=== PATIENT | male | born 1965 | race Caucasian/White ===

== ENCOUNTER → 2018-02-23 | Outpatient (CLI) | payer BC ==
--- NOTE | 2018-02-23 10:05 | XR ---
EXAMINATION TYPE: XR knee complete LT DATE OF EXAM: 02/23/2018 CLINICAL HISTORY: Patellar pain. TECHNIQUE: Three views of the left knee are obtained. COMPARISON: None. FINDINGS: There is no acute fracture/dislocation evident in left knee. The overlying soft tissue bryce ears unremarkable. There is mild medial compartment joint space narrowing. Patellas slightly high rid ing without patella. Chondroid matrix intramedullary density of the distal left femoral metaphysis ma y relate to prior bone infarct or small enchondroma. IMPRESSION: There is no acute fracture or dislocation in the left knee. Mild medial compartment arth rosis. Possible small enchondroma or bone infarct.
== END | disposition home or self-care (01) ==
LOC: RADXRYALE 09:04
PROVIDERS: ATTEND Physician Assistant Medical
DX: M17.12 Unilateral primary osteoarthritis, left knee (principal)

== ENCOUNTER → 2018-11-16 | Outpatient (CLI) | payer BC ==
--- NOTE | 2018-11-16 22:01 | XR ---
EXAMINATION TYPE: XR lumbosacral spine min 4V DATE OF EXAM: 11/16/2018 CLINICAL HISTORY: Chronic low back pain. TECHNIQUE: Frontal, lateral, and oblique images of the lumbar spine are obtained. COMPARISON: Prior lumbar spine x-ray October 30, 2013 FINDINGS: There are 5 lumbar type vertebral bodies redemonstrated. The lumbar spine redemonstrates satisfactory alignment without evidence of acute fracture or dislocation. Vertebral body heights garcia in within normal limits. There is [id number] multilevel disc space narrowing with interval pro gression from prior study. Mild to minimal multilevel anterior spurring is seen. The oblique images a ppear within normal limits. The overlying soft tissue appears unremarkable. IMPRESSION: As above.
== END | disposition home or self-care (01) ==
LOC: RADXRYALE 16:37
PROVIDERS: ATTEND Physician Assistant Medical
DX: M48.061 Spinal stenosis, lumbar region without neurogenic claudication (principal)
CPT/HCPCS: 72110

== ENCOUNTER → 2020-01-31 | Outpatient (CLI) | payer BC ==
--- NOTE | 2020-01-31 09:29 | US ---
EXAMINATION TYPE: US abdomen complete DATE OF EXAM: 01/31/2020 COMPARISON: us CLINICAL HISTORY: R11.2 nausea with vomiting,R10.31 Rt low quad pain. EXAM MEASUREMENTS: Liver Length: 13.0 cm Gallbladder Wall: 0.3 cm CBD: 0.3 cm Spleen: 11.5 cm Right Kidney: 10.7 x 5.0 x 4.3 cm Left Kidney: 10.7 x 5.3 x 5.3 cm Extensive midline bowel gas. Pancreas: Obscured by bowel gas Liver: wnl as seen, somewhat obscured by bowel Gallbladder: wnl Evidence for sonographic Borrego's sign: no CBD: wnl Spleen: wnl Right Kidney: 2mm echogenic focus possible small stone Left Kidney: wnl Upper IVC: wnl Abd Aorta: wnl The liver is homogenous. The intrahepatic portion of the IVC and proximal abdominal aorta are within normal limits. There is no evidence of cholelithiasis. Common bile duct is unremarkable. The splee n is unremarkable. Kidneys are symmetric and free of hydronephrosis. No renal lesions are seen. IMPRESSION: Nonobstructing 2 mm right renal calculus. No sonographic evidence of cholelithiasis or ac [place] cholecystitis. Pancreas is obscured by bowel gas.
== END | disposition home or self-care (01) ==
LOC: RADUSWWP 06:48
PROVIDERS: ATTEND Family Medicine
DX: N20.0 Calculus of kidney (principal); R11.2 Nausea with vomiting, unspecified
CPT/HCPCS: 76700

== ENCOUNTER 2020-02-20 20:57 | Emergency (ER) | payer BC ==
[2020-02-20] MEDS ORDERED: LIDOCAINE 1% INJ 10MG/ML (20 ML MDV) SQ ONE (21:10)
[2020-02-20] MEDS ORDERED: DIPH,PERTUS(ACELL)TETVAC-LF 0.5 ML VIAL IM ONE (21:13)
--- NOTE | 2020-02-20 21:13 | ED ---
Wound/Laceration HPI - General Chief Complaint: Wound/Laceration Stated Complaint: L Thumb Lac Time Seen by Provider: 02/20/20 21:03 Source: patient Mode of arrival: ambulatory Limitations: no limitations - History of Present Illness Initial Comments: Patient is a 54-year-old male presenting to the emergency department with chief complaint of a laceration. States he was using a table saw about one hour prior to arrival when she accidentally lacerated the palmar aspect of the left first digit. Denies any numbness or tingling. States he has full range of motion in the thumb. Denies taking medication to alleviate his symptoms. Not on blood thinners. Unknown tetanus status. - Related Data Home Medications Medication Instructions Recorded Confirmed Fluticasone Nasal [place] [Flonase 1 spray EA NOSTRIL DAILY 05/11/16 05/19/16 Nasal [place]] Hydrocodone/Acetaminophen [[place] 1 tab PO BID PRN 05/11/16 05/11/16 5-325] Ibuprofen [Motrin] 800 mg PO TID 05/11/16 05/11/16 traMADol HCL [Ultram] 50 mg PO TID PRN 05/11/16 05/19/16 Previous Rx's Medication Instructions Recorded Hydrocodone/Acetaminophen [[place] 1 - 2 tab PO Q6HR PRN #90 tab 05/19/16 5-325] Allergies Allergy/AdvReac Type Severity Reaction Status Date / Time No Known Allergies Allergy Verified 02/20/20 21:01 Review of Systems ROS Statement: Those systems with pertinent positive or pertinent negative responses have been documented in the HPI. ROS Other: All systems not noted in ROS Statement are negative. Past Medical History Additional Past Medical History / Comment(s): degenerative disks History of Any Multi-Drug Resistant Organisms: None Reported Past Surgical History: Orthopedic Surgery Additional Past Surgical History / Comment(s): ganglion cyst removed rt wrist, last month- sterid injections in spine Past Anesthesia/Blood Transfusion Reactions: No Reported Reaction Past Psychological History: No Psychological Hx Reported Smoking Status: Current some day smoker Past Alcohol Use History: Occasional Past Drug Use History: None Reported - Past Family History Father Family Medical History: Cancer General Exam Limitations: no limitations General appearance: alert, in no apparent distress Head exam: Present: atraumatic, normocephalic, normal inspection Eye exam: Present: normal appearance, PERRL, EOMI Pupils: Present: normal accommodation ENT exam: Present: normal exam, normal oropharynx, mucous membranes moist, TM's normal bilaterally, normal external ear exam Neck exam: Present: normal inspection, full ROM Respiratory exam: Present: normal lung sounds bilaterally Cardiovascular Exam: Present: regular rate, normal rhythm, normal heart sounds Extremities exam: Present: full ROM, tenderness (Tenderness at the site of injury), normal capillary refill, other (+2 ulnar and radial pulses bilaterally). Absent: normal inspection (3 cm laceration on the palmar aspect of the left thumb.) Back exam: Present: normal inspection, full ROM Neurological exam: Present: alert, oriented X3 Psychiatric exam: Present: normal affect, normal mood Skin exam: Present: warm, dry, intact, normal color Course Vital Signs 02/20/20 20:59 Temperature 97.6 F Pulse Rate 75 Respiratory 20 Rate Blood Pressure 124/86 O2 Sat by Pulse 97 Oximetry Procedures - Laceration Laceration #1 Consent Obtained: verbal consent Indication: laceration Site: hand (Left thumb) Size (cm): 3 Description: irregular Depth: simple, single layer Sedation/Analgesia: none Anesthetic Used: lidocaine 1% Anesthesia Technique: nerve block Amount (mls): 5 Pre-repair: irrigated extensively, deep structures intact, wound margins revised Type of Sutures: nylon Size of Sutures: 4-0 Number of Sutures: 8 Technique: simple, interrupted Patient Tolerated Procedure: well, no complications Medical Decision Making - Medical Decision Making Patient is a 54-year-old male presenting to emergency Department with chief complaint of a laceration. Patient lacerated the palmar aspect of his left thumb using a table saw. 3 cm laceration with no tendon involvement. Neurovascularly intact. Laceration site was thoroughly irrigated. Tetanus administered. Laceration site repaired with a sutures. X-ray shows no foreign bodies. Return parameters thoroughly discussed with patient was understanding and agreeable. Case discussed with physician. Disposition Clinical Impression: Laceration, Injury of finger of left hand Disposition: HOME SELF-CARE Condition: Stable Instructions (If sedation given, give patient instructions): Care For Your Stitches (DC), Laceration (DC) Additional Instructions: Return to emergency department in 7 days for suture removal or sooner if necessary. Follow wound care instructions. Is patient prescribed a controlled substance at d/c from ED?: No Referrals: Royal Guerrero, [Primary Care Provider] - 1-2 days Time of Disposition: 22:02
--- NOTE | 2020-02-20 21:26 | XR ---
EXAMINATION TYPE: XR hand limited LT DATE OF EXAM: 02/20/2020 COMPARISON: 02/11/2016 HISTORY: Thumb pain table saw laceration. TECHNIQUE: 2 views FINDINGS: I see no fracture nor dislocation. Joint spaces are normal. Metacarpals are intact. There a re no erosions. There is no evidence of a foreign body. IMPRESSION: Negative exam. No fracture seen.
[2020-02-20 22:10] VITALS: BP 119/70; PULSE 72; RESP 16; TEMP 98
== END 2020-02-20 22:09 | disposition home or self-care (01) ==
LOC: EC 20:57
DX: S61.012A Laceration without foreign body of left thumb without damage to nail, initial encounter (principal); F17.200 Nicotine dependence, unspecified, uncomplicated; Z79.1 Long term (current) use of non-steroidal anti-inflammatories (NSAID); Z87.39 Personal history of other diseases of the musculoskeletal system and connective tissue; Z23 Encounter for immunization; W27.8XXA Contact with other nonpowered hand tool, initial encounter; Y93.89 Activity, other specified; Y92.009 Unspecified place in unspecified non-institutional (private) residence as the place of occurrence of the external cause
CPT/HCPCS: 73120; 90715; 99283; 12002; 90471; J2001

== ENCOUNTER 2020-05-22 10:11 | Day surgery (SDC) | payer BC ==
[2020-05-20 16:26] VITALS: BMI 25.8
[~2020-05-22 10:11] MED LIST: LACTATED RINGERS 1,000 ML IV SCH; LIDOCAINE 1% (10MG/ML) FOR IV START INTRADERMA PRN
[2020-05-22 10:55] VITALS: TEMP 96.9
[2020-05-22] MEDS ORDERED: LIDOCAINE 1% INJ 10MG/ML (20 ML MDV) ONE (11:21)
[2020-05-22] MEDS ORDERED: PROPOFOL 10 MG/ML 20 ML VIAL IV ONE (11:21)
--- NOTE | 2020-05-22 11:41 | P.PCN ---
Date of Procedure: 05/22/20 Procedure(s) Performed: Brief history: Patient is a pleasant 55-year-old white male scheduled for an elective upper endoscopy as well as colonoscopy as a part of evaluation of GERD and screening for colorectal neoplasia. Procedure performed: Esophagogastroduodenoscopy with biopsy Colonoscopy Preoperative diagnosis: GERD Screening for colon cancer Anesthesia: MAC Procedure: After informed consent was obtained from the patient was brought into the endoscopy unit and IV sedation was administered by anesthesia under continuous monitoring. Initially upper endoscopy was done. The Olympus GF 160 video endoscope was inserted inserted into the mouth and esophagus intubated without any difficulty and was gradually advanced into the stomach and duodenum and carefully examined. The bulb and second part of the duodenum appeared normal. The scope was then withdrawn into the stomach adequately insufflated with air and upon careful examination the antrum had patchy areas of erythema in the antrum which was biopsied. The body, cardia and fundus appeared normal. The scope was then withdrawn into the esophagus. The GE junction was located at 40 cm to the incisors. It appeared regular with no erythema erosions or ulcerations. Rest of the esophagus appeared normal. as his were done from the distal esophagus. Patient tolerated the procedure well. At this time the patient continued to remain sedation. Initial digital rectal examination was normal. Olympus CF 160 video colonoscope was then inserted into the rectum and gradually advanced to the cecum without any difficulty. Careful examination was performed as the scope was gradually being withdrawn. The prep was excellent. The cecum, ascending colon, transverse colon, descending colon, sigmoid colon and rectum appeared normal. Retroflexion was performed in the rectum and no lesions were noted. Patient tolerated the procedure well. Impression: 1. Upper endoscopy revealed mild antral gastritis 2. Colonoscopy was within normal limits. No evidence of colorectal neoplasia Recommendations: Findings of this examination were discussed with the patient as well as[ his family. He was advised to follow with the biopsy results. He can have a repeat screening colonoscopy in 10 years.
[2020-05-22 12:11] VITALS: BP 108/70; PULSE 50; RESP 16
== END 2020-05-22 12:28 | disposition home or self-care (01) ==
LOC: ORWHC2ENDO 10:11
PROVIDERS: ATTEND Internal Medicine Gastroenterology
DX: K21.0 Gastro-esophageal reflux disease with esophagitis (principal); K29.50 Unspecified chronic gastritis without bleeding; Z12.11 Encounter for screening for malignant neoplasm of colon; F17.200 Nicotine dependence, unspecified, uncomplicated; Z79.899 Other long term (current) drug therapy; Z79.1 Long term (current) use of non-steroidal anti-inflammatories (NSAID); Z79.891 Long term (current) use of opiate analgesic
CPT/HCPCS: 88305; 43239; J2001; J2704; G0121

== ENCOUNTER → 2021-08-17 | Outpatient (CLI) | payer BC ==
--- NOTE | 2021-08-17 11:29 | XR ---
EXAMINATION TYPE: XR lumbosacral spine min 4V DATE OF EXAM: 08/17/2021 CLINICAL HISTORY: Chronic low back pain TECHNIQUE: Frontal, lateral, and oblique images of the lumbar spine are obtained. COMPARISON: Lumbar spine x-ray November 16, 2018 FINDINGS: There are 5 lumbar type vertebral bodies identified. The lumbar spine shows stable and sa tisfactory alignment without evidence of acute fracture or dislocation. Vertebral body heights remain within normal limits. Mild multilevel disc space narrowing with mild multilevel anterior and lateral spurring The oblique images appear stable and within normal limits. The overlying soft tissue appe ars unremarkable. IMPRESSION: As above. No significant change from prior.
== END | disposition home or self-care (01) ==
LOC: RADXRYALE 10:54
PROVIDERS: ATTEND Family Medicine
DX: M54.5 Low back pain (principal)
CPT/HCPCS: 72110

== ENCOUNTER → 2021-10-28 | Outpatient (CLI) | payer BC ==
--- NOTE | 2021-10-28 10:14 | CT ---
EXAMINATION TYPE: CT lumbar spine wo con DATE OF EXAM: 10/28/2021 COMPARISON: Plain film 10/19/2021 from outside institution HISTORY: Low back pain CT DLP: 550.4 mGycm Automated exposure control for dose reduction was used. An unenhanced CT of the lumbar spine was performed. Bone and soft tissue window settings are submitt ed as well as coronal and sagittal reconstructions. FINDINGS: There is a spinal curvature as noted on plain film, multilevel spondylosis is present, lumbar vertebr al bodies show preserved height and bone mineralization. Loss of disc height is present at interverte bral levels consistent with disc desiccation and degenerative disc disease. L1-L2: Posterior disc bulge causes mild anterior mass effect on the thecal sac. No significant spinal stenosis or foraminal encroachment. L2-L3: Posterior broad-based disc bulge causes mild anterior mass effect on the thecal sac on mild sp inal stenosis. No significant foraminal encroachment. L3-L4: Posterior disc bulge causes anterior mass effect on the thecal sac, mild spinal stenosis. Circ umferential extension of disc material extends to cause some mild encroachment inferior aspect of the foramen on the left. L4-L5: Posterior broad-based disc bulge causes anterior mass effect on the thecal sac, mild spinal st enosis, circumferential extension of endplate disc complex results in foraminal encroachment bilatera lly. L5-S1: Circumferential extension of endplate disc complex encroaches somewhat on the inferior aspect of the foramina bilaterally, there is a posterior disc bulge causing minimal anterior mass effect on the thecal sac. No significant spinal stenosis. IMPRESSION: Multilevel degenerative disc disease, foraminal encroachment as described. No paraspinal masses are identified. Lumbar segments are intact.
== END | disposition home or self-care (01) ==
LOC: RADCTMAIN 08:34
PROVIDERS: ATTEND Orthopaedic Surgery
DX: M51.36 Other intervertebral disc degeneration, lumbar region (principal)
CPT/HCPCS: 72131

== ENCOUNTER → 2021-12-30 | Outpatient (CLI) | payer BC, OTHER ==
[2021-12-30 10:09] VITALS: BP 126/68; PULSE 66; RESP 18; TEMP 98.2
--- NOTE | 2021-12-30 10:33 | P.CON ---
Consult Note - . Consult date: 12/30/21 Assessment/Plan:: HISTORY OF PRESENT ILLNESS: 56 -year-old male referral from Dr. Solis and with a history of lumbar disc bulges and degenerative disc disease presents today with lower back pain. Patient states his pain level is 3 out of 10 in intensity, dull and achy in the mid to lower lumbar spine and elevates to an 8 out of 10 in intensity with prolonged sitting standing or walking. Patient states pain radiates to the left lower extremity and at times at his right foot. She states that his right foot tingles when he bends forward to wear his shoes. Pain is relieved with medications, topical, injections, currently in physical therapy, home exercise regimen, laying supine with legs elevated and rest. PMH: Osteoarthritis PSH: Lumbar laminectomy April 2016, injections and Dr. Landa/Dr. Zavaleta's office in 2013 and 2019, right wrist ganglion cyst injection. SH: Negative 3 FH: Noncontributory All: NKDA Meds: See list REVIEW OF ORGAN SYSTEMS: CONSTITUTIONAL: No fevers or chills. No recent weight loss. HEENT: No visual acuity loss, eye pain, difficulties with hearing. No nosebleeds. No difficulty swallowing. RESPIRATORY: Denies any troubles with breathing or dyspnea on exertion. CARDIOVASCULAR: Denies any chest pain, palpitations, or recent heart attacks. GASTROINTESTINAL: Denies fatty food intolerance. Has change in bowel habits and gas bloat. GENITOURINARY: Denies any blood in urine. Has increased urinary frequency. NEUROLOGICAL: + numbness and tingling along the distal extremities. No seizure disorders or headaches. MUSCULOSKELETAL: + back pain SKIN: No skin cancer. No rash. PSYCHIATRIC: Denies current depression or suicidal thoughts. ENDOCRINE: Denies current thyroid disorders. Denies any blood sugar glucose intolerance. HEME/LYMPHATIC: Denies any lumps and bumps around the neck. History of deep venous thrombosis. ALLERGY/IMMUNOLOGY: No immunoglobulin therapy. No immune deficiencies. BREAST: Denies current breast lumps, pain or nipple discharge. Physical Examinations : Constitutional : Cooperative , not in acute distress . HEENT: Neck supple. No Lymphadenopathy. Normal thyroid size . Eyes no ptosis , no icterus, no photophobia . Hearing intact. Normal oropharynx. No Thrush. Respiratory : Chest clear to auscultations bilaterally. No wheezing. No rhonchi. Cardiovascular : Regular rate and rhythm , S1 / S2. No S3 . No S4. Gastrointestinal : Abdomen soft. No tenderness. Bowel sounds x 4. No organomegaly . Genitourinary : Deferred. Neurologic : Cranial nerve II to XII intact. No focal neurological deficits. Psychiatric : alert & oriented x 3. Matching mood & appropriate affect. Judgment & insight intact. Lymphatic No Lymphadenopathy. Musculoskeletal : Cervical Spine Motor strength in the deltoid and biceps: Normal right side. Normal Left side Motor strength biceps and the wrist extensors: Normal right side . Normal left side Motor strength in the triceps muscle: Normal right side. Normal left side Deep tendon reflexes: Normal at the biceps. Normal at Brachioradialis. Normal at triceps Cervical facet loading test: positive bilaterally Spurling test: positive bilaterally Neck distraction test: positive bilaterally Ashlee sign: positive bilaterally Lumbar spine Motor strength lower extremities ,thigh and legs 5/5 Right side , 5/5 Left side Deep tendon reflexes : Normal Knee Jerk. Normal Ankle Jerk Diffuse vertebral body tenderness to palpation over the L3, L4, L5 Lumbar facet Loading Test: positive Right / positive Left Range of motion of the lumbar spine Flexion 30 degrees, extension 10 degrees Straight Leg Raise test: Left/ Right positive at <45 degrees Krishna test: positive right / positive left. Severe tenderness over the Sacroiliac joint on the Right / Left sides Gaenslen test: positive bilaterally Seated flexion test: positive bilaterally. Assessment/ Plan : Recommendation of LESI of the L4-L5 Patient may also benefit from a right SI joint injection based on symptomatology and physical exam findings May follow up with our office as patient may need another series based on sufficient pain relief Denies aspirin anticoagulant use Risks, benefits of procedure discussed and patient verbalized understanding All questions answered I have spent greater than 50 minutes on patient care today. Dr Flores was available by phone for the evaluation of this patient. The time was used to review the medical records including relevant urine studies and Prescription history (MAPs), review of the available imaging, evaluation and examination of the patient, coordination of care with the medical staff and if applicable referring physicians, as well as creation of the medical record PQRS Measure Charge Sheet Mode of Arrival: Ambulatory - Pain Location Lower Back Non-Pharmacological Interventions: Chiropractic Treatment, Home Exercise, Physical Therapy, Position/Reposition, Stretching Pharmacological Interventions: PRN Medication, Topical Medication PQRS Narrative: Smoking Status Current some day smoker Blood Pressure 126/68 Pain Intensity [Lower Back] 3 Scale Used Numeric (1 - 10) Hx Alcohol Use (MH) No Home Medications: Ambulatory Orders Gabapentin [Neurontin] 300 mg PO BID 05/20/20 Cetirizine HCl/Pseudoephedrine [Cetirizine-Pse ER 5-120 mg Tab] 1 tab PO BID 12/28/21 Cholecalciferol [Vitamin D3 (25 Mcg = 1000 Iu)] 50 mcg PO DAILY 12/28/21 HYDROcodone/APAP 5-325MG [[place] 5-325] 1 tab PO TID PRN 12/28/21 Meloxicam [Mobic] 15 mg PO DAILY 12/28/21
== END | disposition home or self-care (01) ==
LOC: PNWHC3 09:43
PROVIDERS: ATTEND Physician Assistant Medical
DX: M47.896 Other spondylosis, lumbar region (principal)
CPT/HCPCS: 99211

== ENCOUNTER 2022-01-26 08:01 | Day surgery (SDC) | payer OTHER ==
[2022-01-25 11:06] VITALS: BMI 27.4
[2022-01-26 08:35] VITALS: PULSE 62; RESP 16; TEMP 96.8
[2022-01-26] MEDS ORDERED: IV FLUID CONTINUATION 1,000 ML IV ONE (08:40)
[2022-01-26] MEDS ORDERED: fentaNYL (PF) 50 MCG/ML 2 ML AMP ONE (08:41)
[2022-01-26] MEDS ORDERED: TRIAMCINOLONE ACETONIDE 40 MG/ML 1 ML VIAL ONE (08:41)
[2022-01-26] MEDS ORDERED: IOPAMIDOL M200 10 ML VIAL ONE (08:41)
[2022-01-26] MEDS ORDERED: MIDAZOLAM 2 MG/2 ML VIAL ONE (08:41)
[2022-01-26] MEDS ORDERED: IV FLUID CONTINUATION 800 ML IV ONE (08:58)
[2022-01-26] MEDS ORDERED: LACTATED RINGERS 1,000 ML IV SCH (09:03)
--- NOTE | 2022-01-26 09:13 | FL ---
EXAMINATION TYPE: FL guided pain mgmt statistic DATE OF EXAM: 01/26/2022 CLINICAL HISTORY: LESI TECHNIQUE: Fluoroscopy. COMPARISON: CT dated 10/28/2021 FINDINGS: Fluoroscopic guidance was provided during procedure performed by Dr. Mccloud. A total of 4 seconds of fluoroscopic time was utilized during the procedure and 1 spot image was acquired. IMPRESSION: As Above.
[2022-01-26 09:16] VITALS: BP 105/73
--- NOTE | 2022-01-26 12:31 | P.PCN ---
Date of Procedure: 01/26/22 Description of Procedure: PREOPERATIVE DIAGNOSIS: 1-lumbar radiculopathy 2-Lumbar spondylosis with Facet arthropathy without myelopathy POSTOPERATIVE DIAGNOSIS: Lumbar radiculopathy 2-Lumbar spondylosis with Facet arthropathy without myelopathy PROCEDURE 1. Lumbar epidural steroid injection under fluoroscopic guidance at the L4-L5 level. SURGEON: Rajinder Mendez MD ANESTHESIA: Local with 1% lidocaine 3 ml and IV sedation with Versed 2 mg ,and fentanyl 100 Mcg EBL: Minimal PROCEDURE INDICATION: The patient with low back pain and radiculitis symptoms unresponsive to conservative treatment. Fluoroscopy was used to optimize visualization of the needle placement and to maximize safety. Referred by Dr. Solis for LESI at L4-5 PROCEDURE DESCRIPTION / TECHNIQUE: The patient was seen and identified in the preoperative area. Risks, benefits, complications including but not limited to infections ,bleeding ,allergic reaction to the medications ,nerve damage and not complete pain releife , and alternatives were discussed with the patient. The patient agreed to proceed with the procedure and signed the consent. IV was started, and vital signs were stable. Patient was taken to the OR and time out was completed. The patient was placed in the prone position on procedure table and a pillow was placed under the abdomen to reduce lumbar lordosis. The lumbosacral area was prepped and draped in the usual sterile fashion.ere closely monitored during the procedure. Con scious sedation was used during the procedure to decrease patients anxiety. Vital signs was monitered during the entire procedure. Using anterior-posterior fluoroscopy, the L4-L5 interlaminar space was identified and the skin over this site was marked and then infiltrated with 1% lidocaine subcutaneously. Subsequently, a 20-gauge Tuohy epidural needle was inserted and advanced toward the epidural space using the ``Loss of resistance technique and guided by AP fluoroscopy. The correct needle position in the epidural space was verified with the injection of 2 mL of the water soluble contrast dye Omnipaque 180 contrast and observing an excellent epidurogram with the epidural spread of the dye, after negative aspiration for blood and CSF and in the absence of paresthesias. Again after negative aspiration, a 5 ml mixture containing 40mg Kenalog and 4 ml of preservative free Normal Saline was injected. Needle was withdrawn intact, skin was cleansed, and bandages were applied. COMPLICATIONS: None DISPOSITION / PLANS: The patient was placed in a supine position and transferred to the recovery area in a stable condition for observation. There was no evidence of lower extremity motor or sensory deficit after the procedure. Patient was discharged from the recovery room after meeting discharge criteria. Home discharge instructions were given to the patient by the staff. The patient was reexamined prior to discharge. The patient will repeat LESI in 2-4 weeks.
== END 2022-01-26 09:30 | disposition home or self-care (01) ==
LOC: ORPAIN 08:01
PROVIDERS: ATTEND Anesthesiology
DX: M54.16 Radiculopathy, lumbar region (principal); M47.816 Spondylosis without myelopathy or radiculopathy, lumbar region
CPT/HCPCS: 62323; J2250; J3301; J3010; Q9966; 99152

== ENCOUNTER → 2022-12-14 | Outpatient (CLI) | payer OTHER ==
--- NOTE | 2022-12-14 11:24 | XR ---
EXAMINATION TYPE: XR foot complete RT DATE OF EXAM: 12/14/2022 CLINICAL HISTORY: pain TECHNIQUE: Frontal, lateral and oblique images of the right foot are obtained. COMPARISON: None. FINDINGS: There is no acute fracture/dislocation evident. The joint spaces appear within normal morales its. Dorsal bony spur at the first tarsal metatarsal joint. The overlying soft tissue appears unrema rkable. IMPRESSION: There is no acute fracture or dislocation. ICD 10 NO FRACTURE, INITIAL EVALUATION
== END | disposition home or self-care (01) ==
LOC: RADXRYALE 10:43
PROVIDERS: ATTEND Family Medicine
DX: M25.571 Pain in right ankle and joints of right foot (principal)

== ENCOUNTER → 2024-09-07 | Outpatient (CLI) | payer OTHER ==
--- NOTE | 2024-09-07 17:33 | XR ---
EXAMINATION TYPE: XR cervical spine comp DATE OF EXAM: 09/07/2024 COMPARISON: None HISTORY: Cervicalgia TECHNIQUE: 5 view cervical spine FINDINGS: Prevertebral space is normal. Mild disc space narrowing is present C5-6. Posterior spinal l amellar line is intact. There is foraminal stenosis on the right at C5-C6 and mild foraminal narrowin g on the left at C5-6. MRI can be performed if additional evaluation via benefit. IMPRESSION: 1. Degenerative disc changes C5-6 with foraminal narrowing bilaterally [facility], Workstation: [facility], 09/07/2024 5:30 PM
== END ==
LOC: RADXRYALE 16:10
PROVIDERS: ATTEND Physician Assistant
CPT/HCPCS: 72050

== ENCOUNTER → 2025-05-30 | Outpatient (CLI) | payer OTHER ==
--- NOTE | 2025-05-30 15:00 | XR ---
EXAMINATION TYPE: XR shoulder complete RT DATE OF EXAM: 05/30/2025 2:51 PM COMPARISON: None CLINICAL INDICATION: Male, 60 years old with history of [id number] RT SHLD PAIN; [facility], pain TECHNIQUE: XR shoulder complete RT; examined in AP, internally rotated and scapular Y projections. FINDINGS: No evidence of acute osseous pathology, joint dislocation, or soft tissue swelling. The remaining po rtions of the visualized chest are unremarkable. Mild degeneration changes of the acromion and dista l clavicle. IMPRESSION: 1. No acute osseous pathology. 2. Mild shoulder osteoarthrosis. [facility], , 05/30/2025 2:57 PM
== END | disposition home or self-care (01) ==
LOC: RADXRYALE 14:38
PROVIDERS: ATTEND Physician Assistant
DX: M19.011 Primary osteoarthritis, right shoulder (principal)